=== PATIENT | male | born 1960 | race African-American/Black ===

== ENCOUNTER 2019-07-30 16:26 | Emergency (ER) | payer OTHER ==
--- NOTE | 2019-07-30 16:37 | ED Physician Documentation ---
PD HPI MALE - Stated complaint Stated Complaint: MALE - Chief complaint Chief Complaint: General - History obtained from History obtained from: Patient - History of Present Illness Timing - onset: How many months ago (couple of months with feeling of needing to urinate often and not feeling empty. Started on Flomax a month ago and was having some improved symptoms. Then the past few days having feeling of needing to urinate often and does feel that he empties. However quick feeling of urgency and sometimes unable to even make to bathroom the past day. No hematuria. Does not hurt to urinate per se. Stopped his HCTZ so did not have to go as often, but then concerned as it is in combo with the Lisinopril. Feeling lightheaded at times the past couple weeks.) Timing - details: Gradual onset, Still present Associated symptoms: Urinary frequency, Hematuria. No: Dysuria, Discharge, Genital sore / lesion, Testiclar pain, Scrotal swelling Similar symptoms before: Has not had sx before Recently seen: Clinic (for urinary symptoms and felt to be enlarged prostate.) Review of Systems Constitutional: denies: Fever, Chills Nose: denies: Rhinorrhea / runny nose, Congestion Throat: denies: Sore throat Respiratory: denies: Cough GI: denies: Abdominal Pain, Nausea, Vomiting, Diarrhea : reports: Frequency. denies: Dysuria, Hematuria, Discharge, Testicular pain Neurologic: denies: Near syncope (but lightheaded at times the past couple weeks. Had not taken BP regularly, says it was 120 systolic a couple of times (last office visit).) PD PAST MEDICAL HISTORY - Past Medical History Cardiovascular: Hypertension Respiratory: None Endocrine/Autoimmune: Type 2 diabetes GI: None : None HEENT: None Psych: None Musculoskeletal: None Derm: None - Past Surgical History Past Surgical History: No - Present Medications Home Medications: Ambulatory Orders Medication Instructions Recorded Confirmed Lisinopril/Hydrochlorothiazide 40 mg PO DAILY 02/04/13 09/26/14 [Lisinopril-Hctz 10-12.5 mg Tab] Aspirin [Aspir 81] 1 tab PO DAILY 06/21/14 09/26/14 Cholecalciferol (Vitamin D3) 10,000 unit PO DAILY 06/21/14 09/26/14 [Vitamin D3] Cinnamon Bark [Cinnamon] 500 mg PO DAILY 06/21/14 09/26/14 Felodipine [Plendil] 1 tab PO DAILY 06/21/14 09/26/14 Glatiramer Acetate [Copaxone] 44 mg SUBQ DAILY 06/21/14 09/26/14 Hydrochlorothiazide 25 mg PO DAILY 06/21/14 09/26/14 Ibuprofen 200 mg PO ONCE PRN 06/21/14 09/26/14 Metformin HCl 1,000 mg PO DAILY 06/21/14 09/26/14 Multivitamin [Multi Vitamin Daily] 1 each PO DAILY 06/21/14 09/26/14 Anderson-3 Fatty Acids/Fish Oil [Fish 1 cap PO DAILY 06/21/14 09/26/14 Oil 1,000 mg Capsule] Potassium Gluconate [Potassium] 99 mg PO DAILY 06/21/14 09/26/14 Sildenafil Citrate [Viagra] 1 tab PO DAILY PRN 06/21/14 09/26/14 Vitamin A 0 cap PO DAILY 06/21/14 09/26/14 Vitamin B Complex 1 each PO DAILY 06/21/14 09/26/14 traMADol [Ultram] 1 tab PO DAILY 06/21/14 09/26/14 Ciprofloxacin HCl [Cipro] 2 tab PO BID 07/06/14 09/26/14 Oxybutynin Chloride 5 mg PO BID #14 tablet 07/30/19 lisinopriL [Lisinopril] 10 mg PO DAILY #30 tablet 07/30/19 - Allergies Allergies/Adverse Reactions: Allergies Allergy/AdvReac Type Severity Reaction Status Date / Time No Known Drug Allergies Allergy Verified 07/30/19 16:30 - Social History Does the pt smoke?: No Smoking Status: Former smoker Does the pt drink ETOH?: No Does the pt have substance abuse?: No PD ED PE NORMAL - Vitals Vital signs reviewed: Yes - General General: Alert and oriented X 3, Well developed/nourished, Other (seems uncomfortable with feeling of urgency. Bladder scan shows only 30 ml though. ) - Abdomen Abdomen: Soft, Non tender - Male Male : Deferred - Rectal Rectal: Deferred - Back Back: No CVA TTP - Derm Derm: Normal color, Warm and dry Results - Vitals Vitals: Vital Signs - 24 hr 07/30/19 07/30/19 16:30 18:24 Temperature 36.7 C 36.7 C Heart Rate 61 56 L Respiratory 16 16 Rate Blood Pressure 146/74 H 143/83 H O2 Saturation 100 100 Oxygen O2 Source Room air - Labs Labs: Laboratory Tests 07/30/19 07/30/19 16:57 17:39 POC Whole Bld Glucose 106 H Urine Color YELLOW Urine Clarity CLEAR Urine pH 7.5 Ur Specific [place] 1.020 Urine Protein NEGATIVE Urine Glucose (UA) NEGATIVE Urine Ketones NEGATIVE Urine Occult Blood NEGATIVE Urine Nitrite NEGATIVE Urine Bilirubin NEGATIVE Urine Urobilinogen 1 (NORMAL) Ur Leukocyte Esterase NEGATIVE Ur Microscopic Review NOT INDICATED Urine Culture Comments NOT INDICATED PD MEDICAL DECISION MAKING - ED course Complexity details: re-evaluated patient (BP here higher systolic at 140, but diastolic at 74. May be having low at times with lightheaded as the Flomax with have effect on BP orthostasis as well. Can consider stopping HCTZ and lowering Lisinopril dose. UA normal and post void residual is only 30 ml, so likely bladder spasms causing symptoms. ) Departure - Departure Disposition: 01 Home, Self Care Clinical Impression: Urinary frequency Condition: Stable Record reviewed to determine appropriate education?: Yes Prescriptions: lisinopriL [Lisinopril] 10 mg PO DAILY #30 tablet Oxybutynin Chloride 5 mg PO BID #14 tablet Comments: Your urine does not show any signs of infection. Your bladder scanner showed good emptying of the bladder after voiding. That means you are not showing urinary retention. It seems then that you are urinating appropriately but just getting the stimulation of having to go without necessarily a large amount in the bladder. That could be some irritation or inflammation in the bladder or more likely is that the bladder is having spasms. Also with the good urine outflow now on the tamsulosin, you may be urinating in excess with the diuretic and so stopping the HCTZ could be appropriate. I wrote for your lisinopril without the HCTZ and add a slightly lower dose of 10 mg daily. Also for the short-term add oxybutynin which is a antispasmodic for the bladder twice daily for the next 5 to 7 days and see if it helps with the urinary symptoms. We will see how your blood pressure does over the next week or so and decide on the best doses for your BP medicines. Discharge Date/Time: 07/30/19 18:28
[2019-07-30 17:14] LABS: BILIRUBIN,URINE NEGATIVE (NEGATIVE); GLUCOSE, URINE (UA) NEGATIVE (NEGATIVE); KETONES,URINE (UA) NEGATIVE (NEGATIVE); LEUKOCYTE ESTERASE, URINE NEGATIVE (NEGATIVE); NITRITE,URINE NEGATIVE (NEGATIVE); OCCULT BLOOD,URINE NEGATIVE (NEGATIVE); PH,URINE 7.5 PH (5.0-7.5); PROTEIN,URINE NEGATIVE (NEGATIVE); UROBILINOGEN,URINE 1 (NORMAL) E.U./dL (NORMAL)
[2019-07-30 17:24] LABS: CLARITY,URINE CLEAR (CLEAR)
[2019-07-30] MEDS ORDERED: OXYBUTYNIN 5MG TABLET PO STA (17:49)
[2019-07-30 18:24] VITALS: BP 143/83
== END 2019-07-30 18:28 | disposition home or self-care (01) ==
LOC: ED 16:26 → SUPCPDRO 16:26 → ED 18:28
DX: R35.0 Frequency of micturition (principal); I10 Essential (primary) hypertension; E11.9 Type 2 diabetes mellitus without complications; Z79.84 Long term (current) use of oral hypoglycemic drugs; Z87.891 Personal history of nicotine dependence
CPT/HCPCS: 51798; 81003; 99283; A9270; 81001; 87086